=== PATIENT | male | born 1955 | race Caucasian/White ===

== ENCOUNTER 2016-10-17 12:34 | Emergency (ER) | payer MEDICARE ==
[~2016-10-17] VITALS: Ht 170.1 cm; Wt 74.8 kg
[~2016-10-17 12:34] MED LIST: 'PARAFON FORTE500 M1 PO; ADVAIR 100/501 E1; ALBUTEROL0.09 MG/A2; AMITRIPTYLINE25 MG PO; ASPIRIN325 MG PO; BUDEPRION XL150 MG PO; BUPROPION HCL300 MG PO; CLINDAMYCIN HC300 MG PO; CYCLOBENZAPRINE10 MG PO; CYMBALTA30 M1 PO; DAYPRO600 M1 PO; DIAZEPAM10 M1 PO; FLEXERIL10 MG PO; FLOVENT 220 M220 MCG INH; HYDROCODONE BIT1 T11 PO; HYDROXYZINE PAM50 MG PO; IMDUR SA30 MG PO; KETOROLAC10 MG PO; KLOR-CON M2020 MEQ PO; LAMICTAL ODT PA1 OD1 PO; LAMICTAL100 MG PO; LAMOTRIGINE100 MG PO; LAMOTRIGINE25 M1 PO; LEVOTHYROXIN0.025 M1 PO; LISINOPRIL5 MG PO; MEDROL DOSEPAK4 MG PO; METOPROLOL SR25 MG PO; METOPROLOL SR50 MG PO; NORCO 325 MG-51 TAB PO; PARAFON FORTE500 MG PO; PENICILLIN VK500 MG PO; PLAVIX75 MG PO; PREDNICOT10 MG PO; PREDNISONE10 MG PO; PROTONIX40 MG PO; ROBAXIN750 MG PO; ROBITUSSIN AC 10 MG/ PO; SIMVASTATIN10 MG PO; SIMVASTATIN80 MG PO; SPIRIVA18 MCG PO; ST. JOSEPH81 M2 PO; TOPROL XL100 MG PO; TORADOL10 MG PO; TRAZADONE HYDR100 MG PO; ULTRAM50 MG PO; VALIUM10 MG PO; VALIUM5 MG PO; VIBRAMYCIN100 MG PO; VICODIN ES 7501 TAB PO; WELLBUTRIN SR150 MG PO; ZOCOR80 MG PO; ZOFRAN ODT4 MG SL; ZOFRAN4 MG PO; [UNRECOGNIZED DRUG - OTHER] PO
[2016-10-17 13:13] LABS: HEMATOCRIT 40.2 % (42.0-52.0); HEMOGLOBIN 13.7 g/dl (14.0-18.0); MEAN CELL VOLUME 92.6 fl (80.0-94.0); MEAN CORPUSCULAR HGB 31.6 pg (27.0-31.0); MEAN CORPUSCULAR HGB CONC 34.1 g/dl (33.0-37.0); MEAN PLATELET VOLUME 9.5 fl (9.6-12.3); PLATELET COUNT AUTOMATED 207 10*3/uL (130-400); RED BLOOD COUNT 4.34 10*6/uL (4.50-5.90); RED CELL DISTRI WIDTH 12.5 % (0-14.5); WHITE BLOOD COUNT 8.3 10*3/uL (4.8-10.8)
[2016-10-17 13:25] LABS: PROTHROMBIN TIME 10.7 SECONDS (9.0-12.4)
[2016-10-17 13:35] LABS: ALBUMIN 3.7 gm/dl (3.1-4.5); ALKALINE PHOSPHATASE 78 U/L (45-117); BILIRUBIN, TOTAL 0.3 mg/dl (0.2-1.0); BUN 20 mg/dl (7-24); CARBON DIOXIDE 27 mmol/L (21-32); CHLORIDE 108 mmol/L (98-107); CKMB 1.5 ng/ml (0.5-3.6); CPK 103 U/L (39-308); EST GLOM FILT AFRICAN AMERICAN > 60 ml/min; GLUCOSE 109 mg/dL (65-99); MAGNESIUM 2.1 mg/dL (1.5-2.1); POTASSIUM 3.8 mmol/L (3.5-5.1); SGOT/AST 15 IU/L (3-35); SGPT/ALT 17 U/L (12-78); SODIUM 139 mmol/L (136-145); TOTAL PROTEIN 6.9 gm/dL (6.4-8.2)
[2016-10-17 13:37] LABS: ATYPICAL LYMPHS 5 % (0-0); C-REACTIVE PROTEIN < 0.29 MG/DL (0-0.3); EOSINOPHIL # 0.2 10*3/uL (0-0.4); EOSINOPHILS 3 % (1-4); LYMPHOCYTE # 2.6 10*3/uL (1.3-4.4); NEUTROPHIL # 4.5 10*3/uL (2.3-7.9); NEUTROPHILS 54 % (47-73); PLATELET SUFFICIENCY NORMAL (NORMAL); TOTAL CELLS COUNTED 100 #CELLS; TROPONIN I < 0.015 ng/ml (<0.045)
[2016-10-17 15:56] LABS: BILIRUBIN NEGATIVE (NEGATIVE); BLOOD NEGATIVE (NEGATIVE); CLARITY CLEAR (CLEAR); COLOR YELLOW (YELLOW); GLUCOSE NEGATIVE (NEGATIVE); KETONE NEGATIVE (NEGATIVE); LEUKO ESTERASE NEGATIVE (NEGATIVE); NITRITE NEGATIVE (NEGATIVE); PH 5.5 (5.0-9.0); PROTEIN NEGATIVE (NEGATIVE); UROBILINOGEN 0.2 E.U./dl (0.2-1.0)
[2016-10-17 16:05] LABS: MUCOUS 2+
[2016-10-17 16:06] LABS: BACTERIA TRACE; EPITHELIAL CELLS 0-2; URINE REFLEX COMMENT NO (NO); WBC 0-2 wbc/hpf (0-5)
== END 2016-10-17 17:18 | disposition home or self-care (01) ==
LOC: ED 12:34
PROVIDERS: Emergency Medicine
DX: M54.2 Cervicalgia (principal); J44.9 Chronic obstructive pulmonary disease, unspecified; I25.2 Old myocardial infarction; Z91.81 History of falling; M47.896 Other spondylosis, lumbar region; M47.892 Other spondylosis, cervical region; Z88.6 Allergy status to analgesic agent; Z79.82 Long term (current) use of aspirin; Z79.899 Other long term (current) drug therapy; F17.200 Nicotine dependence, unspecified, uncomplicated; W19.XXXA Unspecified fall, initial encounter; Y93.01 Activity, walking, marching and hiking; Y92.89 Other specified places as the place of occurrence of the external cause; Y99.8 Other external cause status

== ENCOUNTER 2016-12-13 10:16 | Emergency (ER) | payer MEDICARE ==
[~2016-12-13] VITALS: Wt 74.8 kg
[2016-12-13 11:25] LABS: BASO % 0.3 % (0.0-1.0); EOS # 0.1 10*3/uL (0.0-0.4); EOS % 0.9 % (1.0-4.0); HEMATOCRIT 42.2 % (42.0-52.0); HEMOGLOBIN 14.1 g/dl (14.0-18.0); LYMPH # 1.5 10*3/uL (1.3-4.4); LYMPH % 19.1 % (27.0-41.0); MEAN CORPUSCULAR HGB 31.4 pg (27.0-31.0); MEAN CORPUSCULAR HGB CONC 33.4 g/dl (33.0-37.0); MEAN PLATELET VOLUME 9.7 fl (9.6-12.3); MONO # 0.9 10*3/uL (0.1-1.0); MONO % 10.9 % (3.0-9.0); NEUT # 5.4 10*3/uL (2.3-7.9); NEUT % 68.7 % (47.0-73.0); PLATELET COUNT AUTOMATED 179 10*3/uL (130-400); RED BLOOD COUNT 4.49 10*6/uL (4.50-5.90); RED CELL DISTRI WIDTH 12.8 % (0-14.5); WHITE BLOOD COUNT 7.9 10*3/uL (4.8-10.8)
[2016-12-13 11:34] LABS: ACT PARTIAL THROMBO TIME 27.1 SECONDS (20.8-31.5); INTERNATIONAL NORM RATIO 0.9 (2.0-3.5)
[2016-12-13 11:57] LABS: ALBUMIN 3.7 gm/dl (3.1-4.5); ALKALINE PHOSPHATASE 90 U/L (45-117); BUN 11 mg/dl (7-24); CHLORIDE 101 mmol/L (98-107); CREATININE 1.08 mg/dL (0.70-1.30); LIPASE 101 U/L (73-393); MAGNESIUM 2.3 mg/dL (1.5-2.1); SGOT/AST 18 IU/L (3-35); SGPT/ALT 23 U/L (12-78); SODIUM 137 mmol/L (136-145); TOTAL PROTEIN 7.3 gm/dL (6.4-8.2)
[2016-12-13 12:00] LABS: TROPONIN I < 0.015 ng/ml (<0.045)
== END 2016-12-13 14:03 | disposition left against medical advice (07) ==
LOC: ED 10:16
PROVIDERS: Emergency Medicine
DX: J44.1 Chronic obstructive pulmonary disease with (acute) exacerbation (principal); F17.200 Nicotine dependence, unspecified, uncomplicated; G89.29 Other chronic pain; M54.2 Cervicalgia; M19.90 Unspecified osteoarthritis, unspecified site; Z79.899 Other long term (current) drug therapy; Z88.5 Allergy status to narcotic agent; Z88.6 Allergy status to analgesic agent; Z79.82 Long term (current) use of aspirin

== ENCOUNTER → 2016-12-13 | Outpatient (CLI) | payer MEDICARE | END | disposition home or self-care (01) | LOC: RAD 09:45 | DX: M54.6 Pain in thoracic spine (principal); M25.78 Osteophyte, vertebrae ==

== ENCOUNTER 2017-01-12 10:49 | Emergency (ER) | payer MEDICARE ==
[~2017-01-12] VITALS: Ht 170.1 cm; Wt 74.8 kg
[2017-01-12] MEDS ORDERED: PREDNISONE10 MG PO (11:43)
== END 2017-01-12 12:10 | disposition home or self-care (01) ==
LOC: ED 10:49
DX: L25.9 Unspecified contact dermatitis, unspecified cause (principal); G89.29 Other chronic pain; J44.1 Chronic obstructive pulmonary disease with (acute) exacerbation; F32.9 Major depressive disorder, single episode, unspecified; F17.200 Nicotine dependence, unspecified, uncomplicated; Z88.8 Allergy status to other drugs, medicaments and biological substances; Z88.5 Allergy status to narcotic agent; Z79.82 Long term (current) use of aspirin; Z79.899 Other long term (current) drug therapy

== ENCOUNTER → 2017-01-16 | Outpatient (CLI) | payer MEDICARE | END | disposition home or self-care (01) | LOC: MRI 09:50 | DX: M46.87 Other specified inflammatory spondylopathies, lumbosacral region (principal); M54.14 Radiculopathy, thoracic region; M51.35 Other intervertebral disc degeneration, thoracolumbar region ==

== ENCOUNTER 2017-05-21 09:22 | Emergency (ER) | payer MEDICARE ==
[~2017-05-21] VITALS: Ht 170.1 cm; Wt 77.1 kg
[2017-05-21] MEDS ORDERED: ACETAMINOPHEN325 M2 PO (11:28)
== END 2017-05-21 11:30 | disposition home or self-care (01) ==
LOC: ED 09:22
DX: S52.591A Other fractures of lower end of right radius, initial encounter for closed fracture (principal); Z79.82 Long term (current) use of aspirin; Z79.899 Other long term (current) drug therapy; Z88.5 Allergy status to narcotic agent; Z88.6 Allergy status to analgesic agent; X50.1XXA Overexertion from prolonged static or awkward postures, initial encounter; Y93.89 Activity, other specified; Y92.89 Other specified places as the place of occurrence of the external cause; Y99.9 Unspecified external cause status

== ENCOUNTER 2017-06-04 18:53 | Emergency (ER) | payer MEDICARE ==
[~2017-06-04] VITALS: Wt 79.4 kg
[~2017-06-04 18:53] MED LIST changes: +ACETAMINOPHEN325 M2 PO
== END 2017-06-04 19:36 | disposition home or self-care (01) ==
LOC: ED 18:53
DX: S52.501D Unspecified fracture of the lower end of right radius, subsequent encounter for closed fracture with routine healing (principal); G89.29 Other chronic pain; Z88.5 Allergy status to narcotic agent; Z88.6 Allergy status to analgesic agent; X58.XXXD Exposure to other specified factors, subsequent encounter

== ENCOUNTER → 2018-01-18 | Outpatient (CLI) | payer MEDICARE | END | disposition home or self-care (01) | LOC: US 11:55 | DX: I70.213 Atherosclerosis of native arteries of extremities with intermittent claudication, bilateral legs (principal) ==

== ENCOUNTER → 2019-05-21 | Outpatient (CLI) | payer MEDICARE ==
[2019-05-21 13:44] LABS: BASO # 0.1 10*3/uL (0.0-0.1); BASO % 1.1 % (0.0-1.0); EOS # 0.4 10*3/uL (0.0-0.4); EOS % 4.1 % (1.0-4.0); HEMATOCRIT 43.4 % (42.0-52.0); HEMOGLOBIN 14.1 g/dl (14.0-18.0); LYMPH # 2.4 10*3/uL (1.3-4.4); LYMPH % 28.3 % (27.0-41.0); MEAN CELL VOLUME 93.5 fl (80.0-94.0); MEAN CORPUSCULAR HGB 30.4 pg (27.0-31.0); MEAN CORPUSCULAR HGB CONC 32.5 g/dl (33.0-37.0); MEAN PLATELET VOLUME 9.9 fl (9.6-12.3); MONO # 0.8 10*3/uL (0.1-1.0); MONO % 9.8 % (3.0-9.0); NEUT # 4.8 10*3/uL (2.3-7.9); NEUT % 56.5 % (47.0-73.0); PLATELET COUNT AUTOMATED 306 10*3/uL (130-400); RED BLOOD COUNT 4.64 10*6/uL (4.50-5.90); RED CELL DISTRI WIDTH 12.8 % (0-14.5); WHITE BLOOD COUNT 8.5 10*3/uL (4.8-10.8)
[2019-05-21 13:46] LABS: BILIRUBIN NEGATIVE (NEGATIVE); BLOOD NEGATIVE (NEGATIVE); CLARITY SL CLOUDY (CLEAR); COLOR YELLOW (YELLOW); GLUCOSE NEGATIVE (NEGATIVE); KETONE NEGATIVE (NEGATIVE)
[2019-05-21 13:47] LABS: LEUKO ESTERASE NEGATIVE (NEGATIVE); NITRITE NEGATIVE (NEGATIVE); UROBILINOGEN 0.2 E.U./dl (0.2-1.0)
[2019-05-21 14:20] LABS: EPITHELIAL CELLS 0-2; WBC 0-2 wbc/hpf (0-5)
[2019-05-21 14:29] LABS: ALBUMIN 3.7 gm/dl (3.1-4.5); ALKALINE PHOSPHATASE 109 U/L (45-117); BUN 14 mg/dl (7-24); CHLORIDE 109 mmol/L (98-107); CHOLESTEROL 134 mg/dL (<200); CREATININE 1.17 mg/dL (0.70-1.30); GAMMA GLUTAMYL TRANSPEPTIDASE 12 U/L (15-85); IRON 99 ug/dL (65-175); POTASSIUM 4.6 mmol/L (3.5-5.1); SGOT/AST 10 IU/L (3-35); SGPT/ALT 17 U/L (12-78); SODIUM 142 mmol/L (136-145); TOTAL IRON BINDING CAPACITY 291 ug/dl (250-450); TRIGLYCERIDES 176 mg/dl (<150); VLDL CHOLESTEROL 35 mg/dL (6-40)
[2019-05-21 14:37] LABS: CPK 60 U/L (39-308); HDL CHOLESTEROL 53 mg/dl (40-60); LDL CHOLESTEROL 46 mg/dL (9-159); THYROID STIM HORMONE (HS) 0.845 uIU/ml (0.358-4.75); TOTAL PROTEIN 7.5 gm/dL (6.4-8.2)
[2019-05-21 14:58] LABS: VITAMIN D, 25-HYDROXY 21.3 ng/mL (30-100)
[2019-05-21 15:16] LABS: FERRITIN 60.7 ng/mL (22.0-322.0)
== END | disposition home or self-care (01) ==
LOC: LAB 13:16
PROVIDERS: Family Medicine
DX: R79.89 Other specified abnormal findings of blood chemistry (principal); R53.83 Other fatigue; E78.5 Hyperlipidemia, unspecified; E55.9 Vitamin D deficiency, unspecified

== ENCOUNTER → 2020-01-14 | Outpatient (CLI) | payer MEDICARE ==
[2020-01-14 11:12] LABS: BILIRUBIN Negative (Negative); BLOOD Negative (Negative); CLARITY Clear (Clear); COLOR Yellow (Yellow); GLUCOSE Negative (Negative); KETONE Negative (Negative); LEUKO ESTERASE Negative (Negative); NITRITE Negative (Negative); SPECIFIC GRAVITY <= 1.005 (1.001-1.030); UROBILINOGEN 0.2 E.U./dl (0.0-1.0)
[2020-01-14 11:14] LABS: BASO # 0.1 10*3/uL (0.0-0.1); BASO % 0.7 % (0.0-1.0); EOS # 0.3 10*3/uL (0.0-0.4); EOS % 2.8 % (1.0-4.0); HEMATOCRIT 44.6 % (42.0-52.0); LYMPH # 2.9 10*3/uL (1.3-4.4); LYMPH % 32.6 % (27.0-41.0); MEAN CORPUSCULAR HGB 30.3 pg (27.0-31.0); MEAN PLATELET VOLUME 9.6 fl (9.6-12.3); MONO # 0.8 10*3/uL (0.1-1.0); MONO % 9.4 % (3.0-9.0); NEUT # 4.8 10*3/uL (2.3-7.9); NEUT % 54.3 % (47.0-73.0); PLATELET COUNT AUTOMATED 297 10*3/uL (130-400); RED BLOOD COUNT 4.85 10*6/uL (4.50-5.90); RED CELL DISTRI WIDTH 12.7 % (0-14.5); WHITE BLOOD COUNT 8.9 10*3/uL (4.8-10.8)
[2020-01-14 11:42] LABS: ALBUMIN 4.2 gm/dl (3.1-4.5); BUN 14 mg/dl (7-24); CHLORIDE 105 mmol/L (98-107); CHOLESTEROL 200 mg/dL (<200); CREATININE 1.06 mg/dL (0.70-1.30); GAMMA GLUTAMYL TRANSPEPTIDASE 26 U/L (15-85); HDL CHOLESTEROL 67 mg/dl (40-60); LDL CHOLESTEROL 87 mg/dL (9-159); SGOT/AST 14 IU/L (3-35); SGPT/ALT 21 U/L (12-78); SODIUM 139 mmol/L (136-145); T3 UPTAKE 32 % (31-39); TRIGLYCERIDES 228 mg/dl (<150); VLDL CHOLESTEROL 46 mg/dL (6-40)
[2020-01-14 11:47] LABS: RBC 0-2 rbc/hpf (0-2)
[2020-01-14 11:52] LABS: ALKALINE PHOSPHATASE 98 U/L (45-117); CPK 98 U/L (39-308); FREE T4 0.97 ng/dl (0.76-1.46); IRON 141 ug/dL (65-175); TOTAL IRON BINDING CAPACITY 376 ug/dl (250-450); TOTAL PROTEIN 7.7 gm/dL (6.4-8.2)
[2020-01-14 12:23] LABS: FERRITIN 26.1 ng/mL (22.0-322.0); VITAMIN D, 25-HYDROXY 21.4 ng/mL (30-100)
== END | disposition home or self-care (01) ==
LOC: LAB 10:42
PROVIDERS: ATTEND Family Medicine
DX: Z12.5 Encounter for screening for malignant neoplasm of prostate (principal); R79.89 Other specified abnormal findings of blood chemistry; R53.83 Other fatigue; E78.5 Hyperlipidemia, unspecified; R74.8 Abnormal levels of other serum enzymes; E55.9 Vitamin D deficiency, unspecified

== ENCOUNTER → 2020-02-03 | Outpatient (CLI) | payer MEDICARE ==
[2020-02-04 12:11] LABS: PROSTATE SPECIFIC AG FREE 0.33 ng/mL; PROSTATE SPECIFIC AG, SERUM 1.6 ng/mL (0.0-4.0)
== END | disposition home or self-care (01) ==
LOC: US 11:30 → LAB 11:56
PROVIDERS: ATTEND Urology
DX: N50.3 Cyst of epididymis (principal); N43.3 Hydrocele, unspecified; N28.1 Cyst of kidney, acquired; R97.20 Elevated prostate specific antigen [PSA]

== ENCOUNTER 2020-05-25 15:31 | Emergency (ER) | payer MEDICARE ==
[~2020-05-25] VITALS: Ht 172.7 cm; Wt 65.8 kg
[2020-05-25 16:33] LABS: BASO # 0.1 10*3/uL (0.0-0.1); BASO % 0.6 % (0.0-1.0); EOS # 0.1 10*3/uL (0.0-0.4); EOS % 1.6 % (1.0-4.0); HEMATOCRIT 43.9 % (42.0-52.0); LYMPH # 2.2 10*3/uL (1.3-4.4); LYMPH % 25.7 % (27.0-41.0); MEAN CELL VOLUME 90.1 fl (80.0-94.0); MEAN CORPUSCULAR HGB CONC 33.3 g/dl (33.0-37.0); MEAN PLATELET VOLUME 9.9 fl (9.6-12.3); MONO # 0.7 10*3/uL (0.1-1.0); MONO % 7.9 % (3.0-9.0); NEUT # 5.4 10*3/uL (2.3-7.9); NEUT % 64.1 % (47.0-73.0); PLATELET COUNT AUTOMATED 286 10*3/uL (130-400); RED BLOOD COUNT 4.87 10*6/uL (4.50-5.90); RED CELL DISTRI WIDTH 12.9 % (0-14.5); WHITE BLOOD COUNT 8.4 10*3/uL (4.8-10.8)
[2020-05-25 17:15] LABS: ALKALINE PHOSPHATASE 99 U/L (45-117); BUN 7 mg/dl (7-24); CHLORIDE 104 mmol/L (98-107); CREATININE 0.88 mg/dL (0.70-1.30); POTASSIUM 3.9 mmol/L (3.5-5.1); SGOT/AST 11 IU/L (3-35); SGPT/ALT 19 U/L (12-78); SODIUM 139 mmol/L (136-145); TOTAL PROTEIN 7.8 gm/dL (6.4-8.2)
== END 2020-05-25 19:26 | disposition home or self-care (01) ==
LOC: ED 15:31
PROVIDERS: Physician Assistant
DX: R13.10 Dysphagia, unspecified (principal); I25.10 Atherosclerotic heart disease of native coronary artery without angina pectoris; I10 Essential (primary) hypertension; I25.2 Old myocardial infarction; J44.9 Chronic obstructive pulmonary disease, unspecified; M19.90 Unspecified osteoarthritis, unspecified site; E78.00 Pure hypercholesterolemia, unspecified; F31.9 Bipolar disorder, unspecified; Z88.6 Allergy status to analgesic agent; Z88.8 Allergy status to other drugs, medicaments and biological substances; Z79.899 Other long term (current) drug therapy; Z98.890 Other specified postprocedural states; Z95.818 Presence of other cardiac implants and grafts

== ENCOUNTER 2020-06-20 05:59 | Emergency (ER) | payer MEDICARE ==
[~2020-06-20] VITALS: Ht 170.1 cm; Wt 68.0 kg
[2020-06-20] MEDS ORDERED: ZESTRIL5 MG PO (06:11)
[2020-06-20] MEDS ORDERED: PANTOPRAZOLE SO40 MG PO (06:11)
[2020-06-20] MEDS ORDERED: LEVOTHYROXINE25 MCG PO (06:11)
[2020-06-20] MEDS ORDERED: LIPITOR40 MG PO (06:11)
[2020-06-20] MEDS ORDERED: CYCLOBENZAPRINE10 MG PO (06:11)
[2020-06-20 07:21] LABS: BASO # 0.1 10*3/uL (0.0-0.1); BASO % 0.5 % (0.0-1.0); EOS # 0.3 10*3/uL (0.0-0.4); EOS % 2.2 % (1.0-4.0); HEMATOCRIT 37.5 % (42.0-52.0); LYMPH # 1.9 10*3/uL (1.3-4.4); LYMPH % 17.2 % (27.0-41.0); MEAN CELL VOLUME 89.5 fl (80.0-94.0); MEAN CORPUSCULAR HGB 30.3 pg (27.0-31.0); MEAN CORPUSCULAR HGB CONC 33.9 g/dl (33.0-37.0); MEAN PLATELET VOLUME 9.7 fl (9.6-12.3); MONO % 8.8 % (3.0-9.0); NEUT # 7.9 10*3/uL (2.3-7.9); PLATELET COUNT AUTOMATED 279 10*3/uL (130-400); RED BLOOD COUNT 4.19 10*6/uL (4.50-5.90); RED CELL DISTRI WIDTH 13.2 % (0-14.5); WHITE BLOOD COUNT 11.2 10*3/uL (4.8-10.8)
[2020-06-20 07:37] LABS: ALBUMIN 3.6 gm/dl (3.1-4.5); ALKALINE PHOSPHATASE 85 U/L (45-117); BUN 19 mg/dl (7-24); CHLORIDE 109 mmol/L (98-107); CREATININE 1.01 mg/dL (0.70-1.30); POTASSIUM 3.2 mmol/L (3.5-5.1); SGOT/AST 20 IU/L (3-35); SGPT/ALT 20 U/L (12-78); SODIUM 141 mmol/L (136-145)
[2020-06-20 07:42] LABS: TROPONIN I < 0.015 ng/ml (<0.045)
[2020-06-20] MEDS ORDERED: VIBRAMYCIN100 MG PO (10:18)
[2020-06-20] MEDS ORDERED: COMBIVENT RESPIM4 GM INH (10:18)
[2020-06-20] MEDS ORDERED: PREDNISONE50 MG PO (10:18)
== END 2020-06-20 20:20 | disposition home or self-care (01) ==
LOC: ED 05:59
PROVIDERS: Emergency Medicine
DX: J44.1 Chronic obstructive pulmonary disease with (acute) exacerbation (principal); F32.9 Major depressive disorder, single episode, unspecified; F17.200 Nicotine dependence, unspecified, uncomplicated; Z88.6 Allergy status to analgesic agent; Z79.899 Other long term (current) drug therapy; Z98.61 Coronary angioplasty status

== ENCOUNTER → 2020-12-03 | Outpatient (CLI) | payer OTHER ==
[~2020-12-03] MED LIST changes: +COMBIVENT RESPIM4 GM INH; +LEVOTHYROXINE25 MCG PO; +LIPITOR40 MG PO; +PANTOPRAZOLE SO40 MG PO; +PREDNISONE50 MG PO; +TOPROL XL25 MG PO; +VIBRAMYCIN HYC100 MG PO; +ZESTRIL5 MG PO
== END | disposition home or self-care (01) ==
LOC: RAD 14:46
PROVIDERS: ATTEND Nurse Practitioner Family
DX: M19.011 Primary osteoarthritis, right shoulder (principal)

== ENCOUNTER 2020-12-09 19:57 | Inpatient (IN) | payer OTHER ==
[~2020-12-09] VITALS: Ht 170.2 cm; Wt 65.8 kg
[~2020-12-09 19:57] MED LIST changes: -TOPROL XL25 MG PO; -VIBRAMYCIN HYC100 MG PO
[2020-12-09 20:38] LABS: ACT PARTIAL THROMBO TIME 33.3 SECONDS (20.0-32.1); INTERNATIONAL NORM RATIO 1.2 (2.0-3.5)
[2020-12-09 20:40] LABS: MEAN CELL VOLUME 91.5 fl (80.0-94.0); MEAN CORPUSCULAR HGB 30.2 pg (27.0-31.0); MEAN PLATELET VOLUME 10.2 fl (9.6-12.3); PLATELET COUNT AUTOMATED 225 10*3/uL (130-400); RED BLOOD COUNT 4.37 10*6/uL (4.50-5.90); RED CELL DISTRI WIDTH 13.1 % (0-14.5); WHITE BLOOD COUNT 14.5 10*3/uL (4.8-10.8)
[2020-12-09 20:47] LABS: ALBUMIN 2.9 gm/dl (3.1-4.5); ALKALINE PHOSPHATASE 57 U/L (45-117); BUN 38 mg/dl (7-24); CHLORIDE 98 mmol/L (98-107); POTASSIUM 3.1 mmol/L (3.5-5.1); SGOT/AST 11 IU/L (3-35); SGPT/ALT 14 U/L (12-78); SODIUM 133 mmol/L (136-145); TOTAL PROTEIN 6.4 gm/dL (6.4-8.2)
[2020-12-09 20:50] LABS: TROPONIN I < 0.015 ng/ml (<0.045)
[2020-12-09 21:07] VITALS: BP 90/48
[2020-12-09 21:19] LABS: PLATELET SUFFICIENCY NORMAL (NORMAL); TOTAL CELLS COUNTED 100 #CELLS
[2020-12-09 21:20] LABS: OVALOCYTES FEW
[2020-12-09 21:21] LABS: BURR CELLS MODERATE
[2020-12-09 22:48] VITALS: BP 90/48
[2020-12-10] VITALS (28 sets, daily range): BP systolic 73–130; BP diastolic 48–89
[2020-12-10 03:44] LABS: ABG BASE EXCESS -0.7 mmol/L (-2.0-2.0); ARTERIAL BLOOD GAS PH 7.443 (7.35-7.45); ARTERIAL BLOOD GAS PO2 74.9 (80-90)
[2020-12-10 04:14] LABS: HEMATOCRIT 35.1 % (42.0-52.0); MEAN CELL VOLUME 90.5 fl (80.0-94.0); MEAN CORPUSCULAR HGB 29.9 pg (27.0-31.0); MEAN PLATELET VOLUME 9.9 fl (9.6-12.3); PLATELET COUNT AUTOMATED 186 10*3/uL (130-400); RED BLOOD COUNT 3.88 10*6/uL (4.50-5.90); RED CELL DISTRI WIDTH 13.3 % (0-14.5); WHITE BLOOD COUNT 13.5 10*3/uL (4.8-10.8)
[2020-12-10 04:32] LABS: ALBUMIN 2.5 gm/dl (3.1-4.5); CREATININE 2.76 mg/dL (0.70-1.30); POTASSIUM 3.5 mmol/L (3.5-5.1); TOTAL PROTEIN 5.7 gm/dL (6.4-8.2)
[2020-12-10 04:34] LABS: PLATELET SUFFICIENCY NORMAL (NORMAL); TOTAL CELLS COUNTED 100 #CELLS
[2020-12-10 07:24] LABS: FERRITIN 144.2 ng/mL (22.0-322.0)
[2020-12-10 07:36] LABS: VITAMIN D, 25-HYDROXY 17.3 ng/mL (30-100)
[2020-12-10 21:22] LABS: BILIRUBIN 1+ (Negative); BLOOD Negative (Negative); CLARITY Cloudy (Clear); COLOR Dark Yellow (Yellow); GLUCOSE Negative (Negative); KETONE Trace (Negative); LEUKO ESTERASE 1+ (Negative); NITRITE Negative (Negative)
[2020-12-10 21:32] LABS: BACTERIA 3+; MUCOUS 1+; RBC 0-2 rbc/hpf (0-2); WBC 21-30 wbc/hpf (0-5)
[2020-12-11] VITALS (12 sets, daily range): BP systolic 99–154; BP diastolic 39–90
[2020-12-11 05:49] LABS: MEAN CELL VOLUME 90.4 fl (80.0-94.0); MEAN CORPUSCULAR HGB 30.1 pg (27.0-31.0); MEAN CORPUSCULAR HGB CONC 33.2 g/dl (33.0-37.0); MEAN PLATELET VOLUME 10.7 fl (9.6-12.3); PLATELET COUNT AUTOMATED 178 10*3/uL (130-400); RED BLOOD COUNT 3.76 10*6/uL (4.50-5.90); RED CELL DISTRI WIDTH 13.3 % (0-14.5); WHITE BLOOD COUNT 12.8 10*3/uL (4.8-10.8)
[2020-12-11 05:55] LABS: ALBUMIN 2.3 gm/dl (3.1-4.5); CREATININE 2.22 mg/dL (0.70-1.30); POTASSIUM 3.7 mmol/L (3.5-5.1); TOTAL PROTEIN 6.2 gm/dL (6.4-8.2)
[2020-12-11 06:50] LABS: TOTAL CELLS COUNTED 100 #CELLS
[2020-12-11 06:51] LABS: BURR CELLS FEW; PLATELET SUFFICIENCY NORMAL (NORMAL); POLYCHROMASIA SLIGHT
[2020-12-12] VITALS: BP 121/85
[2020-12-12 07:00] LABS: HEMATOCRIT 33.3 % (42.0-52.0); MEAN CELL VOLUME 89.3 fl (80.0-94.0); MEAN CORPUSCULAR HGB 29.8 pg (27.0-31.0); MEAN CORPUSCULAR HGB CONC 33.3 g/dl (33.0-37.0); MEAN PLATELET VOLUME 10.7 fl (9.6-12.3); PLATELET COUNT AUTOMATED 198 10*3/uL (130-400); RED BLOOD COUNT 3.73 10*6/uL (4.50-5.90); RED CELL DISTRI WIDTH 13.1 % (0-14.5)
[2020-12-12 07:18] LABS: ALKALINE PHOSPHATASE 107 U/L (45-117); CHLORIDE 104 mmol/L (98-107); CREATININE 1.41 mg/dL (0.70-1.30); POTASSIUM 3.9 mmol/L (3.5-5.1); SGOT/AST 9 IU/L (3-35); SGPT/ALT 14 U/L (12-78); SODIUM 137 mmol/L (136-145); TOTAL PROTEIN 6.2 gm/dL (6.4-8.2)
[2020-12-12 07:31] LABS: BUN 45 mg/dl (7-24)
[2020-12-12 08:00] VITALS: BP 145/90
[2020-12-12 08:03] LABS: TOTAL CELLS COUNTED 100 #CELLS
[2020-12-12 08:04] LABS: BURR CELLS FEW; PLATELET SUFFICIENCY NORMAL (NORMAL); POLYCHROMASIA SLIGHT
[2020-12-12 13:00] VITALS: BP 145/83
[2020-12-12 16:00] VITALS: BP 144/92
[2020-12-12 20:00] VITALS: BP 138/90
[2020-12-13] VITALS: BP 143/87
[2020-12-13 06:40] LABS: HEMATOCRIT 34.2 % (42.0-52.0); MEAN CELL VOLUME 89.5 fl (80.0-94.0); MEAN CORPUSCULAR HGB 29.8 pg (27.0-31.0); MEAN CORPUSCULAR HGB CONC 33.3 g/dl (33.0-37.0); MEAN PLATELET VOLUME 10.8 fl (9.6-12.3); PLATELET COUNT AUTOMATED 228 10*3/uL (130-400); RED BLOOD COUNT 3.82 10*6/uL (4.50-5.90); RED CELL DISTRI WIDTH 13.2 % (0-14.5); WHITE BLOOD COUNT 16.7 10*3/uL (4.8-10.8)
[2020-12-13 06:49] LABS: BUN 41 mg/dl (7-24); CHLORIDE 106 mmol/L (98-107); CREATININE 1.09 mg/dL (0.70-1.30); POTASSIUM 3.8 mmol/L (3.5-5.1); SODIUM 140 mmol/L (136-145)
[2020-12-13 07:59] LABS: TOTAL CELLS COUNTED 100 #CELLS
[2020-12-13 08:00] VITALS: BP 140/68
[2020-12-13 08:00] LABS: PLATELET SUFFICIENCY NORMAL (NORMAL)
[2020-12-13 12:00] VITALS: BP 122/85
[2020-12-13] MEDS ORDERED: VIBRAMYCIN HYC100 MG PO (13:08)
[2020-12-13] MEDS ORDERED: TOPROL XL25 MG PO (14:15)
== END 2020-12-13 17:56 | disposition home or self-care (01) | DRG 871 ==
LOC: ED 19:57 → 4E 12-10 01:55 → EDHOLD 12-10 01:55 → ICCU 12-10 23:09 → 4E 12-11 11:56
PROVIDERS: Hospitalist; Internal Medicine; Internal Medicine Nephrology; ADMIT Internal Medicine; ATTEND Internal Medicine
PROC: 02HV33Z Insertion of Infusion Device into Superior Vena Cava, Percutaneous Approach (ICD-10-PCS; principal; 2020-12-10)
PROC: B548ZZA Ultrasonography of Superior Vena Cava, Guidance (ICD-10-PCS; 2020-12-10)
DX: A41.9 Sepsis, unspecified organism (principal); N17.0 Acute kidney failure with tubular necrosis; J96.00 Acute respiratory failure, unspecified whether with hypoxia or hypercapnia; J18.9 Pneumonia, unspecified organism; E87.1 Hypo-osmolality and hyponatremia; E87.2 Acidosis; Z20.822 Contact with and (suspected) exposure to COVID-19; R65.20 Severe sepsis without septic shock; D64.9 Anemia, unspecified; E87.6 Hypokalemia; I95.9 Hypotension, unspecified; E88.09 Other disorders of plasma-protein metabolism, not elsewhere classified; E78.5 Hyperlipidemia, unspecified; I25.10 Atherosclerotic heart disease of native coronary artery without angina pectoris; M19.90 Unspecified osteoarthritis, unspecified site; I10 Essential (primary) hypertension; F17.210 Nicotine dependence, cigarettes, uncomplicated; F12.90 Cannabis use, unspecified, uncomplicated; R55 Syncope and collapse; Z71.6 Tobacco abuse counseling; Z88.6 Allergy status to analgesic agent; Z88.5 Allergy status to narcotic agent; Z79.1 Long term (current) use of non-steroidal anti-inflammatories (NSAID); Z79.899 Other long term (current) drug therapy

== ENCOUNTER 2022-05-10 23:46 | Emergency (ER) | payer OTHER ==
[~2022-05-10] VITALS: Ht 170.1 cm; Wt 68.0 kg
[~2022-05-10 23:46] MED LIST changes: +TOPROL XL25 MG PO; +VIBRAMYCIN HYC100 MG PO
[2022-05-11 00:27] LABS: BASO # 0.1 10*3/uL (0.0-0.1); BASO % 0.6 % (0.0-1.0); EOS # 0.2 10*3/uL (0.0-0.4); EOS % 1.4 % (1.0-4.0); HEMATOCRIT 42.9 % (42.0-52.0); LYMPH # 2.2 10*3/uL (1.3-4.4); LYMPH % 19.8 % (27.0-41.0); MEAN CELL VOLUME 88.8 fl (80.0-94.0); MEAN CORPUSCULAR HGB 30.6 pg (27.0-31.0); MEAN CORPUSCULAR HGB CONC 34.5 g/dl (33.0-37.0); MEAN PLATELET VOLUME 9.7 fl (9.6-12.3); MONO % 8.8 % (3.0-9.0); NEUT # 7.8 10*3/uL (2.3-7.9); NEUT % 69.3 % (47.0-73.0); PLATELET COUNT AUTOMATED 377 10*3/uL (130-400); RED BLOOD COUNT 4.83 10*6/uL (4.50-5.90); RED CELL DISTRI WIDTH 12.3 % (0-14.5); WHITE BLOOD COUNT 11.3 10*3/uL (4.8-10.8)
[2022-05-11 00:47] LABS: ALKALINE PHOSPHATASE 105 U/L (46-116); BUN 27 mg/dl (9-23); CHLORIDE 103 mmol/L (98-107); LIPASE 43 U/L (12-53); POTASSIUM 4.3 mmol/L (3.4-5.1); SGPT/ALT 12 U/L (10-49); TOTAL PROTEIN 7.7 gm/dL (6.0-8.0)
== END 2022-05-11 03:02 | disposition home or self-care (01) ==
LOC: ED 23:46
PROVIDERS: Emergency Medicine
DX: R10.13 Epigastric pain (principal); R07.9 Chest pain, unspecified; I10 Essential (primary) hypertension; Z88.8 Allergy status to other drugs, medicaments and biological substances; Z79.899 Other long term (current) drug therapy; F17.200 Nicotine dependence, unspecified, uncomplicated

== ENCOUNTER → 2023-10-01 | Outpatient (CLI) | payer MEDICARE | END | disposition home or self-care (01) | LOC: RAD 08:49 | PROVIDERS: ATTEND Nurse Practitioner Family | DX: M47.812 Spondylosis without myelopathy or radiculopathy, cervical region (principal); M19.011 Primary osteoarthritis, right shoulder ==

== ENCOUNTER 2025-02-02 07:48 | Emergency (ER) | payer OTHER ==
[~2025-02-02] VITALS: Ht 170.1 cm; Wt 68.0 kg
[2025-02-02] MEDS ORDERED: Albuterol Sulf/Ipratropium 3 ML VIAL NEB ONE (08:00)
[2025-02-02 08:47] LABS: VENOUS BLOOD GAS O2 SAT 95.0 % (60.0-85.0)
[2025-02-02 08:51] LABS: BASO # 0.1 10*3/uL (0.0-0.1); BASO % 0.9 % (0.0-1.0); EOS # 0.2 10*3/uL (0.0-0.4); EOS % 3.1 % (1.0-4.0); MEAN CELL VOLUME 92.4 fl (80.0-94.0); MEAN CORPUSCULAR HGB 29.3 pg (27.0-31.0); MEAN PLATELET VOLUME 9.7 fl (9.6-12.3); MONO # 0.9 10*3/uL (0.1-1.0); MONO % 11.6 % (3.0-9.0); NEUT # 4.7 10*3/uL (2.3-7.9); NEUT % 61.0 % (47.0-73.0); NUCLEATED RED BLOOD CELL 0.0 % (0.0-0.0); NUCLEATED RED BLOOD CELL 0.0 10*3/uL (0.0-0.0); PLATELET COUNT AUTOMATED 276 10*3/uL (130-400); RED CELL DISTRI WIDTH 12.5 % (0-14.5)
[2025-02-02 09:01] LABS: BUN 26 mg/dl (9-23)
[2025-02-02] MEDS ORDERED: PREDNISONE20 M1 PO (11:33)
[2025-02-02] MEDS ORDERED: ZITHROMAX250 MG PO (11:33)
== END 2025-02-02 11:59 | disposition home or self-care (01) ==
LOC: ED 07:48
PROVIDERS: Student in an Organized Health Care Education/Training Program
DX: J44.1 Chronic obstructive pulmonary disease with (acute) exacerbation (principal); I25.10 Atherosclerotic heart disease of native coronary artery without angina pectoris; I10 Essential (primary) hypertension; I25.2 Old myocardial infarction; M19.90 Unspecified osteoarthritis, unspecified site; E78.00 Pure hypercholesterolemia, unspecified; F31.9 Bipolar disorder, unspecified; F12.90 Cannabis use, unspecified, uncomplicated; F17.290 Nicotine dependence, other tobacco product, uncomplicated; Z88.5 Allergy status to narcotic agent; Z88.8 Allergy status to other drugs, medicaments and biological substances